=== PATIENT | female | born 1945 | race Caucasian/White ===

== ENCOUNTER 2018-11-08 15:48 | Emergency (ER) | payer MEDICARE, MEDICAID ==
[~2018-11-08] VITALS: Ht 162.6 cm; Wt 84.1 kg
[2018-11-08 16:19] VITALS: BP 139/94
[2018-11-08] MEDS ORDERED: ALBU8HFA IH (16:19)
== END 2018-11-08 19:30 | disposition left against medical advice (07) ==
LOC: EMS 15:49
DX: F41.9 Anxiety disorder, unspecified (principal); G89.29 Other chronic pain; M54.5 Low back pain; F17.210 Nicotine dependence, cigarettes, uncomplicated; Z53.21 Procedure and treatment not carried out due to patient leaving prior to being seen by health care provider